=== PATIENT | male | born 1990 | race Caucasian/White ===

== ENCOUNTER 2016-11-27 11:27 | Emergency (ER) | payer BC ==
[~2016-11-27] VITALS: Ht 182.9 cm; Wt 99.2 kg
[2016-11-27 12:22] LABS: EOSINOPHIL (%) 0.6 % (0-5); EOSINOPHIL COUNT 0.1 K/uL (0-0.3); HEMATOCRIT 42.4 % (38.0-50.0); IMMATURE GRANULOCYTE (%) 0.5 % (0.0-0.7); IMMATURE GRANULOCYTE COUNT 0.1 K/uL; INSTRUMENT ABS NEUTROPHIL CT 8.6 K/uL; LYMPHOCYTE COUNT 1.2 K/uL (1.0-2.8); MCH 32.5 PG (29.0-34.0); MCHC 33.7 G/DL (30.0-36.0); MCV 96.4 FL (86-99); MEAN PLAT.VOLUME 9.5 uM^3 (9.0-12.4); MONOCYTE (%) 7.4 % (3-12); MONOCYTE COUNT 0.8 K/uL (0-0.8); NEUTROPHIL (%) 80.4 % (45-76); NEUTROPHIL COUNT 8.6 K/uL (1.8-6.4); PLATELET COUNT 173 K/uL (156-360); RBC DIS.WIDTH-CV 12.3 % (11.8-14.6); RBC DIS.WIDTH-SD 43.8 % (39-53); WHITE BLOOD COUNT 10.7 K/uL (4.1-10.2)
[2016-11-27 12:37] LABS: CHLORIDE 105 mEq/L (99-109); POTASSIUM 4.4 mEq/L (3.7-5.4)
[2016-11-27 12:38] LABS: SODIUM 138 mEq/L (136-147)
[2016-11-27 12:39] LABS: GLUCOSE 86 mg/dL (70-99)
[2016-11-27 12:41] LABS: ANION GAP 8 MEQ/L (2-14)
[2016-11-27] MEDS ORDERED: EFFEXOR XR75 MG PO (12:42)
[2016-11-27 12:44] LABS: GFR ESTIMATE (CALCULATED) > 59 mL/min/; UREA NITROGEN (BUN) 9 mg/dL (9-23)
[2016-11-27] MEDS ORDERED: PERCOCET 5/31 TABLET PO (14:13)
[2016-11-27] MEDS ORDERED: MOTRIN800 MG PO (14:14)
[2016-11-27 14:36] VITALS: BP 120/80
== END 2016-11-27 14:38 | disposition home or self-care (01) ==
LOC: EME 11:27
DX: L02.214 Cutaneous abscess of groin (principal); L08.9 Local infection of the skin and subcutaneous tissue, unspecified; M25.561 Pain in right knee
CPT/HCPCS: 73564; 80048; 81003; 83605; 85025; 99281; 99284